=== PATIENT | female | born 1985 | race Caucasian/White ===

== ENCOUNTER → 2018-12-19 11:37 | Outpatient (CLI) | payer OTHER, SELFPAY ==
[2018-12-19 12:37] LABS: Add Manual Diff / Slide Review NO; Basophils Absolute Auto 0 /uL (0-100); Basophils Percent Auto 0.3 % (0-2); Eosinophils Absolute Auto 300 /uL (0-450); Eosinophils Percent Auto 3.1 % (2-4); Hematocrit 37.3 % (36-46); Hemoglobin 12.6 g/dL (12.0-16.0); Lymphocytes Absolute Auto 1900 /uL (1100-4500); Lymphocytes Percent Auto 20.3 % (25-40); Mean Corpuscular HGB Conc 33.9 % (30-36); Mean Corpuscular Hemoglobin 30.2 PG (26-34); Mean Corpuscular Volume 89.3 fL (80-100); Monocytes Absolute Auto 600 /uL (0-900); Monocytes Percent Auto 6.4 % (3-14); Neutrophils Absolute Auto 6600 /uL (1500-7000); Neutrophils Percent Auto 69.9 % (50-75); Platelet Count 199 X10^3/uL (150-400); Red Blood Cell Count 4.18 X10^6/uL (4.0-5.2); Red Cell Distribution Width 13.5 % (11.6-14.8); White Blood Cell Count 9.4 X10^3/uL (4.5-11.0)
[2018-12-19 13:11] LABS: Appearance Urine UA CLEAR; Bilirubin Urine UA NEGATIVE (NEGATIVE); Color Urine UA YELLOW; Glucose Urine UA NEGATIVE (Negative); Ketones Urine UA NEGATIVE (NEGATIVE); Leukocyte Esterase Urine UA NEGATIVE (NEGATIVE); Nitrite Urine UA NEGATIVE (Negative); Occult Blood Urine UA NEGATIVE (Negative); Protein Urine UA NEGATIVE (Negative); Specific Gravity Urine UA 1.015 (1.000-1.035); Urobilinogen Urine UA 0.2 E.U./dL (0.2); pH Urine UA 7.5 (4.5-8.0)
[2018-12-19 15:38] LABS: Hepatitis B Surface Antigen NEGATIVE s/c (NEGATIVE)
[2018-12-19 15:56] LABS: HIV 1 and 2 Antibody NEGATIVE (NEGATIVE); Hep C Virus Ab w/Reflex Quant NEGATIVE s/c (NEGATIVE)
[2018-12-21 22:49] LABS: RPR Screen Nonreactive (Nonreactive)
== END ==
PROVIDERS: PCP Specialist; Visit Provider Specialist
DX: Z34.01 Encounter for supervision of normal first pregnancy, first trimester (principal)
CPT/HCPCS: 36415; 80055; 81003; 86703; 86787; 86803; 86850; 86900; 86901; 87086

== ENCOUNTER → 2019-01-25 14:33 | Outpatient (CLI) | payer OTHER, SELFPAY ==
[2019-01-30 17:00] LABS: AFP, Serum 36.8 ng/mL; Calc Gestational Age 18.4; Cigarette Smoker N; Donated Egg NOT GIVEN; Donor Egg Age NOT GIVEN; Estriol, Free 1.98 ng/mL; Inhibin A, Dimeric 104 pg/mL; Maternal Weight 161 lbs; Number of Fetuses NOT GIVEN; Previous Pregnancy Down Syndro NOT GIVEN; hCG, MoM 0.47; hCG, Serum 10.2 IU/mL
== END ==
PROVIDERS: PCP Specialist; Visit Provider Specialist
DX: Z34.92 Encounter for supervision of normal pregnancy, unspecified, second trimester (principal); Z3A.18 18 weeks gestation of pregnancy
CPT/HCPCS: 36415; 82105; 82677; 84702; 86336

== ENCOUNTER → 2019-02-20 10:35 | Outpatient (CLI) | payer OTHER, SELFPAY ==
--- NOTE | 2019-02-20 10:36 | DI.US.S_ITS ---
PROCEDURE: US OB >= 14 WEEKS FETUS INDICATIONS: ANATOMY SURVEY OUTSIDE/PRIOR DATING DATA: Last menstrual period (LMP): Unknown. LMP-based estimated date of delivery (ADDIE): N./A.. First dating scan (date and location): 11/21/18. Estimated date of delivery (ADDIE) from first dating scan: 06/25/19. TECHNIQUE: Real-time scanning was performed of the fetus, with image documentation and biometric measurements. Endovaginal scanning: No COMPARISON: [facility], , OB >= 14 WEEKS FETUS, 01/25/2019, 14:25. FINDINGS: General: A single living intrauterine gestation is present. Presentation: Variable. Placenta: Placental position is posterior, without previa. Amniotic fluid index: 15.9 cm, normal range is 5-24 cm. heart rate: 152 beats per minute. Maternal cervical canal: 3.8 cm long. Normal lower limit is 2.5 cm. biometrics: Biparietal diameter: 22 weeks 1 day Head circumference: 22 weeks 4 days Abdominal circumference: 22 weeks 6 days Femur length: 22 weeks 2 days Estimated gestational age from initial scan: 22 weeks 1 day Composite gestational age from present scan: 22 weeks 4 days Estimated weight and percentile: 515 g; 66 percentile Measurement variability for biometric dating: +/- 7 days from 14 weeks to 15 weeks 6 days gestation, +/- 10 days from 16 weeks to 21 weeks 6 days gestation, +/- 2 weeks from 22 weeks to 27 weeks 6 days gestation, +/- 3 weeks for 28 weeks gestation or later. weight reference: 4500 g or EFW >90/95% is considered macrosomia or large for gestational age. EFW <10% is small for gestational age. EFW 5% or less is considered intra-uterine growth restriction. Anatomic survey: Neuro: Ventricles are non-dilated at less than 10 mm. Cisterna magna is normal at 3-11 mm. Cerebellum is normal in size and morphology. Nuchal skin fold: Normal at less than 6 mm between 14-21 weeks gestational age. Face: Nose and lips, facial profile are normal. Spine: No evidence for spina bifida. Heart: 4-chambered heart is present, with normal ventricular outflow tracts. Diaphragm: Diaphragm is intact. Stomach: Left-sided stomach is present. Kidneys: No hydronephrosis. Normal is less than 5 mm in 2nd trimester, less than 7 mm in 3rd trimester. Cord: 3-vessel cord has orthotopic insertion. Bladder: Normal in size. Extremities: All 4 extremities identified. IMPRESSION: 1. Single living IUP demonstrated and interval growth is normal. 2. Normal anatomic survey. Dictated by: Jeff Akers [facility] Interpreted: Byron Bagley MD on 02/21/2019 at 12:43 Approved by: Byron Bagley M.D. on 02/21/2019 at 14:31
== END ==
PROVIDERS: Family Provider Specialist; PCP Family Medicine; Visit Provider Specialist
DX: Z34.02 Encounter for supervision of normal first pregnancy, second trimester (principal); Z3A.22 22 weeks gestation of pregnancy
CPT/HCPCS: 76811

== ENCOUNTER → 2019-03-29 10:20 | Outpatient (CLI) | payer OTHER, SELFPAY ==
[2019-03-29 12:18] LABS: Hemoglobin 12.1 g/dL (12.0-16.0)
[2019-03-29 12:37] LABS: GTT (PREG) 1 Hour PP 50gm Dose 111 mg/dL (76-139)
== END ==
PROVIDERS: PCP Family Medicine; Visit Provider Specialist
DX: Z34.82 Encounter for supervision of other normal pregnancy, second trimester (principal); Z3A.26 26 weeks gestation of pregnancy
CPT/HCPCS: 36415; 82950; 85014; 85018

== ENCOUNTER → 2019-05-31 12:03 | Outpatient (CLI) | payer OTHER, SELFPAY ==
[2019-06-01 15:11] LABS: Strep Grp B PCR NEG for Grp B Strep
== END ==
PROVIDERS: PCP Family Medicine; Visit Provider Specialist
DX: Z34.83 Encounter for supervision of other normal pregnancy, third trimester (principal)
CPT/HCPCS: 87653

== ENCOUNTER 2019-06-23 10:50 | Outpatient (CLI) | payer OTHER, SELFPAY ==
--- NOTE | 2019-06-23 13:38 | P.TNLD_ITS ---
Visit Information Visit Information Date of evaluation: 06/23/19 Primary OB Provider: Farheen Gaines Reason for Evaluation: Yes non-stress test non-stress test reason: other (Postdates) Vital Signs Vital Signs: Blood pressure 115/68, pulse of 85, temperature 36.2? [facility] Medical History (Updated 06/23/19 @ 13:39 by Farheen Gaines MD) Postmaturity , 40-42 weeks gestation (Acute) Family History (Updated 11/29/14 @ 00:00 by Conversion Provider) Grandfather Prostate cancer Grandmother Cancer Social History Smoking Status: Former smoker Evaluation Evaluation Baseline heart rate: 130 Variability: Moderate (11-25) monitor accelerations: Present monitor decelerations: Absent Contraction Frequency (minutes): 8 Uterine Contraction Intensity: Mild Category of Tracing: I Diagnosis, Plan/Disposition Final Diagnosis (1) Postmaturity , 40-42 weeks gestation: Current Visit: No Status: Acute Plan/Disposition Plan: Reactive nonstress test. Patient is scheduled for Pitocin induction on 06/28/19 OB Disposition: home
== END 2019-06-23 11:45 | disposition home or self-care (01) ==
LOC: LABOR 11:18 → OB 06-26 10:14
PROVIDERS: PCP Family Medicine; Visit Provider Specialist
DX: O48.0 Post-term pregnancy (principal); Z3A.40 40 weeks gestation of pregnancy
CPT/HCPCS: 59025; G0378; G0379

== ENCOUNTER 2019-06-28 07:03 | Inpatient (IN) | payer OTHER, SELFPAY ==
[2019-06-28 08:00] LABS: Add Manual Diff / Slide Review NO; Basophils Absolute Auto 100 /uL (0-100); Basophils Percent Auto 0.6 % (0-2); Eosinophils Absolute Auto 200 /uL (0-450); Eosinophils Percent Auto 1.9 % (2-4); Hematocrit 36.6 % (36-46); Hemoglobin 12.7 g/dL (12.0-16.0); Lymphocytes Absolute Auto 1900 /uL (1100-4500); Lymphocytes Percent Auto 19.8 % (25-40); Mean Corpuscular HGB Conc 34.7 % (30-36); Mean Corpuscular Hemoglobin 31.9 PG (26-34); Monocytes Absolute Auto 700 /uL (0-900); Monocytes Percent Auto 7.4 % (3-14); Neutrophils Absolute Auto 6900 /uL (1500-7000); Neutrophils Percent Auto 70.3 % (50-75); Platelet Count 154 X10^3/uL (150-400); Red Blood Cell Count 3.97 X10^6/uL (4.0-5.2); White Blood Cell Count 9.8 X10^3/uL (4.5-11.0)
[2019-06-28] MEDS: LACTATED RINGERS 1,000 ML 100 ML IV ×2 (08:00→16:00)
[2019-06-28] MEDS: OXYTOCIN PREMIX 30 UNIT/500 ML PLAST..BAG IV (08:07)
--- NOTE | 2019-06-28 08:41 | PM.OBHP.1 ---
OB HPI Date/Time Date of admission: 06/28/19 Date Patient Seen: 06/28/19 Time Patient Seen: 07:55 History of Present Condition Chief complaint: : 2 Para: 0 Estimated Date of Delivery: 06/22/19 Estimated Gestational Age (weeks): 40 Narrative: Tasneem Watson is a 34 year old female admitted for induction for postdates Indications Indication for induction OB: post dates History of Present care: good care Dating criteria: LMP confirmed by 1st trimester US Ultrasounds: normal mid trimester US Obstetrical complications: none Medical complications: none Preadmission Labs Blood type: O (+) positive -: Antibody screen: negative, GBS status: negative, HBsAG: negative, HIV: negative and RPR/VDLR: negative -: Chlamydia screen: not detected and Gonorrhea screen: not detected -: Rubella: immune and Varicella: immune HCAB: negative Quad screen: Normal 1 hr GTT: 111 Evaluation Evaluation Baseline heart rate: 140 Variability: Moderate (11-25) monitor accelerations: Present monitor decelerations: Absent Contraction Frequency (minutes): 0 Category of Tracing: I Laboratory results: Laboratory Tests 06/28/19 07:40 WBC 9.8 RBC 3.97 L Hgb 12.7 Hct 36.6 MCV 92.0 MCH 31.9 MCHC 34.7 RDW 14.0 Plt Count 154 Neut % (Auto) 70.3 Lymph % (Auto) 19.8 L [place] % (Auto) 7.4 Eos % (Auto) 1.9 L Baso % (Auto) 0.6 Neut # (Auto) 6900 Lymph # (Auto) 1900 [place] # (Auto) 700 Eos # (Auto) 200 Baso # (Auto) 100 PFSH Medical History (Updated 06/23/19 @ 13:39 by Farheen Gainse MD) Postmaturity , 40-42 weeks gestation (Acute) Family History (Updated 11/29/14 @ 00:00 by Conversion Provider) Grandfather Prostate cancer Grandmother Cancer Social History Smoking Status: Former smoker Meds Home Medications and Allergies Home Medications Medication Instructions Recorded Confirmed Type prenat.vits,leatha,gih-yzib-zemdi 1 tab PO DAILY 11/21/18 11/21/18 History Double Electric breast Pump and #1 each 04/19/19 Rx Supplies Allergies Allergy/AdvReac Type Severity Reaction Status Date / Time Sulfa (Sulfonamide Allergy Mild Hives Unverified 06/28/19 07:09 Antibiotics) [SULFA (SULFONAMIDE ANTIBIOTICS)] Penicillins [PENICILLINS] Allergy Unknown Unverified 12/08/17 12:20 Review of Systems Review of Systems Narrative: No rupture membranes. Good movement. No signs or symptoms of preeclampsia. ROS Unobtainable: All systems reviewed & are unremarkable except as noted in HPI and below Exam Vital Signs (past 8 hours): Blood pressure 118/74, pulse 97, temperature 97.0? Narrative Exam Narrative: HEENT exam within normal limits. Lungs are clear to auscultation percussion. Heart is regular rate and rhythm no S3-S4 or murmurs. Abdomen is gravid. Infant is vertex. Extremities without edema and nontender. Objective Labs Result Diagrams: 06/28/19 07:40 Labs: Laboratory Results - last 24 hr 06/28/19 07:40 WBC 9.8 RBC 3.97 L Hgb 12.7 Hct 36.6 MCV 92.0 MCH 31.9 MCHC 34.7 RDW 14.0 Plt Count 154 Neut % (Auto) 70.3 Lymph % (Auto) 19.8 L [place] % (Auto) 7.4 Eos % (Auto) 1.9 L Baso % (Auto) 0.6 Neut # (Auto) 6900 Lymph # (Auto) 1900 [place] # (Auto) 700 Eos # (Auto) 200 Baso # (Auto) 100 Assessment and Plan Assessment and Plan Assessment and Plan narrative: Patient admitted for Pitocin induction at 40 and 6 7 weeks by dates. She is Rh positive and rubella immune with having received Tdap in the 3rd trimester.
--- NOTE | 2019-06-28 17:01 | PM.OBPNLAB ---
Date/Time Date Patient Seen: 06/28/19 Time Patient Seen: 17:02 Pain Control Pain control: tolerating well Pelvic Exam Dilation (cm): 1 Effacement (%): 80 station: -1 Amniotic membrane status: Intact Contractions Contractions on admission: regular Monitor mode: External Pitocin rate (mU/min): 12 Contraction frequency (min): 4 Contraction duration (min): 1 Contraction pattern: Regular Contraction intensity: Moderate Status status: Category l Heart Rate Baseline: 140 Monitor Accelerations: Present Monitor Decelerations: Absent Monitor Variability: Moderate Assessment and Plan Assessment: induction ongoing Plan: other (Will stop Pitocin and if contractions stop use prostaglandins overnight, re-evaluate in a.m.)
[2019-06-28] MEDS: miSOPROStol 25 MCG TABLET VAG (21:12)
[2019-06-29] MEDS: OXYTOCIN PREMIX 30 UNIT/500 ML PLAST..BAG IV (07:47)
--- NOTE | 2019-06-29 07:57 | PM.OBPNLAB ---
Pelvic Exam Dilation (cm): 1 Effacement (%): 80 station: -1 Amniotic membrane status: Intact Contractions Monitor mode: External Contraction frequency (min): 4 Contraction pattern: Regular Contraction intensity: Moderate Status status: Category l Monitor Accelerations: Present Monitor Decelerations: Absent Monitor Variability: Moderate Assessment and Plan Assessment: induction ongoing
--- NOTE | 2019-06-29 07:57 | PM.OBPNLAB ---
Date/Time Date Patient Seen: 06/29/19 Time Patient Seen: 07:57 Pain Control Pain control: tolerating well Pelvic Exam Dilation (cm): 3 Effacement (%): 80 station: -1 Amniotic membrane status: Intact Contractions Contractions on admission: none Monitor mode: External Pitocin rate (mU/min): 3 Contraction frequency (min): 4 Contraction duration (min): 1 Contraction pattern: Irregular Contraction intensity: Moderate Status status: Category l Heart Rate Baseline: 140 Monitor Accelerations: Present Monitor Decelerations: Absent Monitor Variability: Moderate Assessment and Plan Assessment: induction ongoing Comments: Patient had Pitocin yesterday, prostaglandins x1 last night, will restart Pitocin today
[2019-06-29] MEDS: LACTATED RINGERS 1,000 ML 100 ML IV ×2 (14:07→20:22)
--- NOTE | 2019-06-29 21:17 | PM.OBPRVD ---
Labor & Delivery Delivery date: 06/29/19 Cervical ripening method: per misoprostal protocol Induction method: per pitocin protocol Delivery augmentation: rupture of membranes Delivery monitor: external FHT and external uterine Route of delivery: Episiotomy description: None L&D Laceration Description: Perineal - 2nd Degree Delivery repair: chromic (3-0) Estimated blood loss (mL): 100 Anesthesia type: Local (15 cc 1% lidocaine) Narrative: Patient was admitted for postdates induction. She received Pitocin but had no change in her cervix so Pitocin was stopped. She received 1 dose Cytotec. She had continued contractions with eventual restart of Pitocin. She was AROM for clear fluid. She used nitrous for pain control. heart tones category 1 to category 2 throughout labor. The patient had a spontaneous vaginal delivery. The infant had a tight nuchal cord. There was terminal meconium. The infant was placed on maternal abdomen. The infant appeared to need additional support so was transferred to the warmer. Cord bloods and segment of cord for cord pH were obtained. The placenta delivered spontaneously, intact, with 3 vessels. There were no cervical tears. A second-degree perineal tear was repaired with 3 0 chromic suture in the usual 2 layer fashion after injecting with 1% lidocaine. Estimated blood loss 100 cc. needed CPAP resuscitation. Bilateral pneumothorax were diagnosed and the baby will be transferred to the NICU. venous? cord blood pH 7.113, PCO2 41.7, PO2 27 BE -16. Approximate weight 8 lb 4 oz [place] 1: gender: Male Presentation: vertex position: Right Occiput Anterior Placenta delivery description: Spontaneous cord vessel description: Nuchal Cord score (1 min): 2 score (5 min): 3 score (10 min): 5 Plan for aftercare: Routine post vaginal delivery
--- NOTE | 2019-06-30 07:40 | PM.OBDS.1 ---
Discharge Providers Provider Date of admission: 06/28/19 07:03 Discharge Date: 06/30/19 Primary care physician: Charlotte Headley MD Consults: 06/28/19 07:08 Consult to Anesthesiology Urgent Comment: Consulting Provider: Anesthesiologist Reason for consultation: Epidural Has provider been notified: No 06/29/19 21:44 Consult to Dental Claims Processor Routine Comment: Discharge provider: Farheen Gaines MD Summary Hospital Course Date Patient Seen: 06/30/19 Time Patient Seen: 00:00 Procedures: Vaginal delivery Hospital Course: Patient was brought in for induction for postdates . She had Pitocin for 1 day followed by Cytotec overnight and then Pitocin the next day. She used nitrous for pain control. She had a spontaneous vaginal delivery. She had repair of a second-degree perineal tear. The baby had bilateral pneumothorax and was transferred to the NICU in [place]. Patient had minimal bleeding, was ambulatory, and requested discharge to go with the baby to [place] which was allowed. Peripartum Data Delivery Method: Natural Vaginal Laceration description: Perineal - 2nd Degree Procedures: Prostin and Pitocin induction for postdates, spontaneous vaginal delivery with repair of second-degree tear complications: none [place] 1: Gender: Male Disposition of : NICU Discharge Diagnosis (1) Vaginal delivery: Status: Acute Status at Discharge Cognitive/behavioral status at discharge: oriented Functional status at discharge: independent ambulation Overall status at discharge: patient is progressing back to baseline Time Spent with Patient Time attestation: Total time spent providing and/or coordinating discharge services: Objective Labs Result Diagrams: 06/28/19 07:40 Exam Narrative Exam Narrative: Abdomen is soft, nontender. Uterus is firm, at U, nontender. Repair is intact. Appropriate lochia. Extremities without edema and nontender. Discharge Plan Discharge Plan Patient Disposition: Home Discharge Med Rec/Prescriptions Prescriptions: Continued (DME) Double Electric breast Pump and Supplies 0 .ROUTE .MEDSUPPLY Qty: 1 RF: 0 prenat.vits,leatha,cbu-hotp-rfaig tablet 1 tab PO DAILY RF: 0 Follow up/Referrals: Charlotte Headley MD [Primary Care Provider] - Farheen Gaines MD [Physician] - 1 Month Provider Discharge Instructions Diet: Regular Skin/Wound/Dressing Care Report to your healthcare provider any signs of infection, such as:: chills, fever and increased pain Visit Report/Discharge Packet Stand Alone Forms: Discharge: Care, Discharge: [place] Care Visit Report Forms: Patient Portal/API, Stroke Signs & Symptoms Discharge Data Primary Care Provider: Charlotte Headley Discharges patient from system. Discharge Date/Time: 06/30/19 01:20
== END 2019-06-30 01:20 | disposition home or self-care (01) | DRG 807 ==
PROVIDERS: Admitting Provider Specialist; PCP Family Medicine; Visit Provider Specialist
DX: O48.0 Post-term pregnancy (principal); Z37.0 Single live birth; O69.1XX0 Labor and delivery complicated by cord around neck, with compression, not applicable or unspecified; Z3A.40 40 weeks gestation of pregnancy; O77.0 Labor and delivery complicated by meconium in amniotic fluid; O70.1 Second degree perineal laceration during delivery
CPT/HCPCS: 59050; 59400; 85025; 86850; 86900; 86901; G0379; J2590

== ENCOUNTER → 2022-11-17 12:23 | Outpatient (CLI) | payer OTHER, SELFPAY ==
--- NOTE | 2022-11-17 | DI.US.S_ITS ---
PROCEDURE: US OB >= 14 WEEKS FETUS INDICATIONS: anatomy scan OUTSIDE/PRIOR DATING DATA: Last menstrual period (LMP): 06/25/2022. LMP-based estimated date of delivery (ADDIE): 04/01/2023. First dating scan (date and location): 11/17/2022. Estimated date of delivery (ADDIE) from first dating scan: 04/01/2023. The calculations are made using the clinical ADDIE of 04/01/2023. TECHNIQUE: Real-time scanning was performed of the fetus, with image documentation and biometric measurements. COMPARISON: None. FINDINGS: General: A single living intrauterine gestation is present. Presentation: Variable. Placenta: Placental position is posterior, without previa. Amniotic fluid index: 14.1 cm, normal range is 5-24 cm. Single deepest vertical pocket is 4.4 cm. heart rate: 143 beats per minute. Maternal cervical canal: 6.1 cm long. Normal lower limit is 2.5 cm. biometrics: Biparietal diameter: 4.8 cm, 20 weeks 3 days Head circumference: 18.0 cm, 20 weeks 3 days Abdominal circumference: 15.6 cm, 20 weeks 5 days Femur length: 3.6 cm, 21 weeks 3 days Clinically estimated gestational age: 20 weeks 5 days Composite gestational age from present scan: 20 weeks 5 days Estimated weight and percentile: 391 g, 60th percentile Anatomic survey: Neuro: Ventricles are non-dilated at less than 10 mm. Cisterna magna is normal at 3-11 mm. Cerebellum is normal in size and morphology. Nuchal skin fold: Normal at less than 6 mm between 14-21 weeks gestational age. Face: Nose and lips, facial profile are normal. Spine: No evidence for spina bifida. Heart: 4-chambered heart is present, with normal ventricular outflow tracts. Diaphragm: Diaphragm is intact. Stomach: Left-sided stomach is present. Kidneys: No hydronephrosis. Normal is less than 5 mm in 2nd trimester, less than 7 mm in 3rd trimester. Cord: 3-vessel cord has orthotopic insertion. Bladder: Normal in size. Extremities: All 4 extremities identified. IMPRESSION: 1. Esposito living intrauterine at 20 weeks 5 days based on today's ultrasound. Fetus is in the 60th percentile for weight. 2. Normal placenta and amniotic fluid. 3. Normal and complete anatomic survey. We strive to produce accurate, complete, and clear reports of imaging services. To assist us in improving patient care, this report was composed using standard report templates and voice recognition software. Therefore, it may contain abnormal punctuation, insertions and/or omissions. Occasional wrong-word or sound-alike substitutions may occur. Though we review the report and make efforts to correct it, we do recommend that the report be read carefully in proper context to recognize any text inaccuracies. Dictated by: Winston Price M.D. on 11/17/2022 at 13:42 Approved by: Winston Price M.D. on 11/17/2022 at 13:46
== END ==
PROVIDERS: PCP Family Medicine; Referring Provider Advanced Practice Midwife; Visit Provider Advanced Practice Midwife
DX: Z34.92 Encounter for supervision of normal pregnancy, unspecified, second trimester (principal); Z3A.20 20 weeks gestation of pregnancy
CPT/HCPCS: 76811